=== PATIENT | female | born 1980 | race Hispanic/Latino ===

== ENCOUNTER 2020-02-27 12:44 | Emergency (ER) | payer SELFPAY ==
[2020-02-27] MEDS ORDERED: predniSONE 20 MG TAB ONE (13:02)
== END 2020-02-27 13:15 | disposition home or self-care (01) ==
LOC: NAV ERS 12:44
DX: L23.7 Allergic contact dermatitis due to plants, except food (principal)
CPT/HCPCS: 99282; J7512